=== PATIENT | female | born 1980 | race Caucasian/White ===

== ENCOUNTER 2016-03-05 09:45 | Emergency (ER) ==
[2016-03-05] MEDS ORDERED: NS 1,000 ML IV ONE (10:34)
[2016-03-05] MEDS ORDERED: ZOFRAN IV ONE (10:36)
[2016-03-05] MEDS ORDERED: NS 1,000 ML ONE (10:39)
--- NOTE | 2016-03-05 11:16 | PROVIDER DOCUMENTATION ---
HPI-Abdominal Pain/GI Problem - General Chief Complaint: Epigastric Pain Stated Complaint: EPIGASTRIC PAIN Time Seen by Provider: 03/05/16 10:06 Source: patient Allergies/Adverse Reactions: Patient Allergies Allergy/AdvReac Type Severity Reaction Status Date / Time Penicillins Allergy Intermediate RASH Verified 03/05/16 09:51 Home Medications: Omeprazole 40 mg PO DAILY 03/05/16 - History of Present Illness-ABD Nature of Presenting Problems: Pt is a 36 yof with a hx of H.Pylori and Gerd that presents to er with cc of Epigastric pain with nausea and watery diarrhea x 2 weeks. pt reports she is taking Prilosec daily with no relief and has took pepto with mild relief. Reports under alot of stress lately. States called pcp office and nurse told come to er. Denies rectal bleeding,v,cough,fever. Abdominal Pain Onset Location: reports: epigastric Quality of Pain: reports: burning Severity in ED: reports: moderate Onset/Duration: reports: other (2 weeks) Timing: reports: constant Bruising or Bleeding Gums?: No Similar Symptoms Previously?: Yes (Years ago when had an ulcer) Recently seen or treated by another doctor?: No Review of Systems - Adult - REVIEW OF SYSTEMS - ADULT Constitutional: denies: chills, fever, fatique Eyes: reports: no symptoms reported Ears, Nose, Mouth & Throat: reports: no symptoms reported Cardiovascular: denies: chest pain, irregular heart rate, orthopnea, syncope Respiratory: reports: no symptoms reported Gastrointestinal: reports: see HPI, abdominal pain, diarrhea, nausea. denies: hematemesis, difficulty swallowing, frequent heartburn, rectal bleeding, vomiting Genitourinary: reports: no symptoms reported Musculoskeletal: reports: no symptoms reported Integumentary: reports: no symptoms reported Neurological: reports: no symptoms reported Psychiatric: reports: no symptoms reported Endocrine: reports: no symptoms reported Hematologic/Lymphatic: reports: no symptoms reported Allergic/Immunologic: reports: no symptoms reported All Other Systems: Reviewed and Negative Past History - Adult - PAST MEDICAL HISTORY-ADULT Review of Records: reports: Nursing Assessment Review, Medications Reviewed Major Childhood Illnesses: reports: denies history Cardiovascular: reports: denies history Gastrointestinal: reports: GERD - PRIOR SURGERIES/PROCEDURES Surgical/Procedure History: reports: hysterectomy - IMMUNIZATION STATUS Childhood Immunizations: See Nurse Assessment Flu Vaccine: See Nurse Assessment - FAMILY HISTORY Family History: reviewed, not pertinent - SOCIAL HISTORY Smoking: denies Substance Use: none/never Physical Exam-General - PHYSICAL EXAM-ADULT Initial Vital Signs Reviewed: Yes - CONSTITUTIONAL General Appearance: appears well, alert - EYES Eyes: PERRL/EOMI, pink conjunctivae - HEAD, EARS, NOSE, MOUTH & THROAT HENMT: normocephalic/atraumatic, moist mucous membranes, normal ENT inspection, TMs normal, pharynx normal - NECK Neck: non-tender - RESPIRATORY Respiratory: chest non-tender, lungs clear, normal breath sounds, no pleuratic chest pain, no respiratory distress, no accessory muscle use - CARDIOVASCULAR Cardiovascular: normal peripheral pulses, regular rate, rhythm, no edema, no gallop, no JVD, no murmur - GASTROINTESTINAL (ABDOMEN) Abdominal Exam: normal bowel sounds, soft, no organomegaly, no pulsatile mass, tenderness (ttp epig) - MUSCULOSKELETAL Back Exam: normal inspection Extremity: normal range of motion, non-tender - SKIN Integumentary: normal color, normal turgor, warm/dry - NEUROLOGIC Neurologic: no motor/sensory deficits - PSYCHIATRIC Psych/Mental Status: normal mood/affect, normal thought content, normal thought process, oriented x 3 Progress - PLAN OF CARE/RESULTS Progress/Plan/Lab Results: Orders Category Date Time Status CBC WITH ELECTRONIC DIFF [HEME] Stat Lab 03/05/16 10:31 Uncollected COMPREHENSIVE METABOLIC PANEL [CHEM] Stat Lab 03/05/16 10:31 Uncollected UA NIMS W/REFLEX CULT [URINALYSIS] Stat Lab 03/05/16 10:31 Uncollected 0.9% Sodium Chloride Inj [Ns] 1,000 ml Med 03/05/16 10:34 Active IV 999 mls/hr Ondansetron [Zofran] Med 03/05/16 10:36 Discontinued 4 mg IV NOW ONE Vital Signs - 24 hr 03/05/16 09:48 Temperature 98.5 F Pulse Rate 110 H Respiratory 20 Rate Blood Pressure 129/64 O2 Sat by Pulse 100 Oximetry Laboratory Tests 03/05/16 03/05/16 03/05/16 11:02 11:02 11:11 WBC 6.93 RBC 4.81 Hgb 15.1 Hct 44.2 MCV 91.9 MCH 31.4 H MCHC 34.2 RDW Std Deviation 12.5 Plt Count 312 MPV 10.7 H Immature Gran % (Auto) 0.3 Neut % (Auto) 55.0 Lymph % (Auto) 35.2 [place] % (Auto) 6.5 Eos % (Auto) 2.3 Baso % (Auto) 0.7 Immature Gran # (Auto) 0.02 Neut # (Auto) 3.81 Lymph # (Auto) 2.44 [place] # (Auto) 0.45 Eos # (Auto) 0.16 Baso # (Auto) 0.05 Sodium Potassium Chloride Carbon Dioxide Anion Gap BUN Creatinine Estimated GFR/1.73 m2 BUN/Creatinine Ratio Glucose Calculated Osmolality Calcium Total Bilirubin AST ALT Alkaline Phosphatase Total Protein Albumin Globulin Albumin/Globulin Ratio Amylase 89 Urine Source CLEAN CATCH Urine Color YELLOW Urine Turbidity CLEAR Urine pH 7.0 Ur Specific Frost 1.005 Urine Protein NEGATIVE Ur Glucose (Stick) NEGATIVE Ur Ketones (Stick) NEGATIVE Urine Blood NEGATIVE Urine Nitrite NEGATIVE Urine Bilirubin NEGATIVE Urobilinogen Dipstick NORMAL Urine Leukocytes SMALL A Urine WBC (Auto) <10 Urine RBC (Auto) <10 U Epithel Cells (Auto) <10 Urine Bacteria (Auto) NEGATIVE 03/05/16 11:11 WBC RBC Hgb Hct MCV MCH MCHC RDW Std Deviation Plt Count MPV Immature Gran % (Auto) Neut % (Auto) Lymph % (Auto) [place] % (Auto) Eos % (Auto) Baso % (Auto) Immature Gran # (Auto) Neut # (Auto) Lymph # (Auto) [place] # (Auto) Eos # (Auto) Baso # (Auto) Sodium 139 Potassium 3.1 L Chloride 98 Carbon Dioxide 27 Anion Gap 14 BUN 6 L Creatinine 0.8 Estimated GFR/1.73 m2 > 60 BUN/Creatinine Ratio 8 Glucose 106 H Calculated Osmolality 276 Calcium 9.6 Total Bilirubin 0.53 AST 12 ALT 9 L Alkaline Phosphatase 82 Total Protein 7.6 Albumin 4.7 Globulin 2.9 Albumin/Globulin Ratio 1.6 Amylase Urine Source Urine Color Urine Turbidity Urine pH Ur Specific Frost Urine Protein Ur Glucose (Stick) Ur Ketones (Stick) Urine Blood Urine Nitrite Urine Bilirubin Urobilinogen Dipstick Urine Leukocytes Urine WBC (Auto) Urine RBC (Auto) U Epithel Cells (Auto) Urine Bacteria (Auto) 1440 Dr.Kantanemni neumann - CONSULTS/PCP/HOSPITALIST Notification #1 *Consult/PCP/Hospitalist*: Dr.Kantanemni Time Discussed: 15:39 (See in office on Tomorrow at 2 pm) Departure - Departure Time of Disposition Order: 15:39 DIAGNOSIS: Epigastric pain Diarrhea Qualifiers: Diarrhea type: unspecified type Qualified Code(s): R19.7 - Diarrhea, unspecified Disposition: HOME 01 Certified Medical Emergency: Emergent Condition: Stable Attestation - Scribe Verification/Attestation Scribe:: Bethanie Casiano Acting as Scribe for:: Christopher Maldonado Scribe documention review:: This chart was documented by a scribe and accurately reflects the service the provider performed and the decisions made by the provider.
[2016-03-05 11:24] LABS: URINE MICRO REVIEW NEEDED? NO; URINE SOURCE CLEAN CATCH
[2016-03-05 11:24] LABS: MANUAL DIFF NEEDED? NO
[2016-03-05 11:26] LABS: BASO% 0.7 % (0.0-0.8); EOS# 0.16 X1000 (0.0-0.7); EOS% 2.3 % (0.0-10.0); HEMATOCRIT 44.2 % (37.0-47.0); HEMOGLOBIN 15.1 g/dL (12.0-16.0); IMM GRAN# 0.02 X1000 (0.0-0.04); IMM GRAN% 0.3 % (0.0-0.5); LYMPH# 2.44 X1000 (1.2-3.4); LYMPH% 35.2 % (20.5-51.1); MCH 31.4 PG (27-31); MCHC 34.2 g/dL (33-37); MCV 91.9 FL (81-99); MONO# 0.45 X1000 (0.11-0.59); MONO% 6.5 % (1.7-9.3); MPV 10.7 FL (7.4-10.4); PLT 312 X1000 (130-400); RBC 4.81 XMIL (4.2-5.4)
[2016-03-05 11:27] LABS: BILIRUBIN URINE NEGATIVE (NEGATIVE); BLOOD URINE NEGATIVE (NEGATIVE); COLOR YELLOW; GLUCOSE URINE NEGATIVE (NEGATIVE); LEUKOCYTES URINE SMALL (NEGATIVE); NITRITE URINE NEGATIVE (NEGATIVE); PROTEIN URINE NEGATIVE (NEGATIVE); SP GRAVITY URINE 1.005; TURBIDITY URINE CLEAR (CLEAR); UR EPITHELIAL CELLS <10 /HPF (<10); URINE BACTERIA NEGATIVE /HPF; URINE CULTURE NEEDED? YES; URINE RBC <10 /HPF (<10); URINE WBC <10 /HPF (<10); UROBILINOGEN URINE NORMAL (NORMAL)
[2016-03-05 11:58] LABS: AGAP 14; ALBUMIN 4.7 g/dL (3.5-5.0); ALKALINE PHOSPHATASE 82 U/L (32-104); BUN 6 mg/dL (8-22); CALCIUM 9.6 mg/dL (8.8-10.2); CHLORIDE 98 mmol/L (98-107); COSMO 276; GOT 12 U/L (10-30); GPT 9 U/L (10-36); POTASSIUM 3.1 mmol/L (3.5-5.1); SODIUM 139 mmol/L (136-145); TCO2 27 mmol/L (25-35); TOTAL BILIRUBIN 0.53 mg/dL (0.20-1.00); TOTAL PROTEIN 7.6 g/dL (6.3-8.3)
[2016-03-05] MEDS ORDERED: PROTONIX IV ONE (14:17)
[2016-03-05] MEDS ORDERED: SODIUM CHLORIDE 0.9% INJ ONE (14:17)
[2016-03-05] MEDS ORDERED: MAALOX PLUS LIQUID PO ONE (14:18)
[2016-03-05 16:12] VITALS: BP 112/56
== END 2016-03-05 16:15 | disposition home or self-care (01) ==
LOC: ED 09:45
DX: R10.13 Epigastric pain (principal); R19.7 Diarrhea, unspecified; R11.0 Nausea; K21.9 Gastro-esophageal reflux disease without esophagitis; Z79.899 Other long term (current) drug therapy; R10.816 Epigastric abdominal tenderness
CPT/HCPCS: 80053; 81001; 82150; 85025; 87088; 96374; 96375; C9113; J2405; J7030; S0164